=== PATIENT | female | born 1975 | race African-American/Black ===

== ENCOUNTER 2023-05-07 15:54 | Emergency (ER) | payer MEDICAID, OTHER ==
[~2023-05-07] VITALS: Ht 170.2 cm; Wt 68.0 kg
[2023-05-07 16:10] VITALS: BP 117/88; PULSE 130; RESP 18; TEMP 98.5; O2SAT 95
[2023-05-07] MEDS ORDERED: SODIUM CHLORIDE 0.9% 1,000 ML IV ONE (16:15)
[2023-05-07 16:57] LABS: BASOPHILS % 0.5 % (0.0-2.0); EOSINOPHILS % 0.2 % (0.0-5.0); HEMATOCRIT. 38.8 % (36.0-48.0); HEMOGLOBIN. 13.1 g/dL (12.0-16.0); LYMPHOCYTES % 34.3 % (20.0-50.0); MEAN CORPUSCULAR HEMOGLOBIN 27.9 pg (28.0-32.0); MEAN CORPUSCULAR VOLUME 82.8 fL (81.0-99.0); MEAN PLATELET VOLUME 7.4 fl (7.4-10.4); PLATELET 233 x1000/uL (130-400); RED BLOOD CELL COUNT 4.69 mill/uL (4.2-5.4); RED CELL DISTRIBUTION WIDTH 16.7 % (11.6-14.6)
[2023-05-07 17:06] LABS: CLARITY URINE CLEAR (CLEAR); COLOR URINE YELLOW (YELLOW); KETONES URINE NEGATIVE (NEGATIVE); LEUKOCYTE ESTERASE URINE NEGATIVE (NEGATIVE); NITRITE URINE NEGATIVE (NEGATIVE); OCCULT BLOOD URINE TRACE (NEGATIVE); PH URINE 5.5 (4.5-8.0); PROTEIN URINE 1+ (NEGATIVE); SPECIFIC GRAVITY URINE 1.007 (1.005-1.030); UROBILINOGEN URINE 0.2 E.U./dL (0.2-1.0)
[2023-05-07 17:06] LABS: CHLORIDE 103 mEq/L (98-107)
[2023-05-07 17:08] LABS: HCG SCREEN NEGATIVE
[2023-05-07 17:18] LABS: *AMPHETAMINES SCREEN URINE NEGATIVE (NEGATIVE); *BARBITURATES SCREEN URINE NEGATIVE (NEGATIVE); *BENZODIAZEPINES SCREEN URINE NEGATIVE (NEGATIVE); *COCAINE SCREEN URINE NEGATIVE (NEGATIVE); CANNABINOID URINE SCREEN NEGATIVE (NEGATIVE); METHADONE URINE SCREEN NEGATIVE (NEGATIVE); OPIATES URINE SCREEN NEGATIVE (NEGATIVE); PHENCYCLIDINE URINE SCREEN NEGATIVE (NEGATIVE)
[2023-05-07 17:46] LABS: ETHANOL BLOOD 436 mg/dL (-10)
== END 2023-05-07 20:38 | disposition left against medical advice (07) ==
LOC: ER 15:54
DX: F10.129 Alcohol abuse with intoxication, unspecified (principal); Z00.00 Encounter for general adult medical examination without abnormal findings; Z53.21 Procedure and treatment not carried out due to patient leaving prior to being seen by health care provider; Y90.8 Blood alcohol level of 240 mg/100 ml or more
CPT/HCPCS: 80053; 80305; 81003; 81025; 80307; 80329; 80320; 84703; 83690; 85025; 36415; 99283; J7030; Z7610; G0480

== ENCOUNTER 2023-05-07 17:55 | Emergency (ER) | payer MEDICAID ==
[2023-05-07 18:03] VITALS: PULSE 122; RESP 16
== END 2023-05-08 03:06 | disposition left against medical advice (07) ==
LOC: ER 17:55
DX: Z53.21 Procedure and treatment not carried out due to patient leaving prior to being seen by health care provider (principal)
CPT/HCPCS: 99281

== ENCOUNTER 2025-02-01 22:21 | Emergency (ER) | payer MEDICAID ==
[~2025-02-01] VITALS: Ht 170.2 cm; Wt 82.0 kg
[2025-02-01 22:24] VITALS: BP 129/86; PULSE 82; RESP 18; TEMP 36.9; O2SAT 96
== END 2025-02-02 02:22 | disposition left against medical advice (07) ==
LOC: ER 22:21
DX: M25.511 Pain in right shoulder (principal); Z53.21 Procedure and treatment not carried out due to patient leaving prior to being seen by health care provider